=== PATIENT | male | born 1980 | race Caucasian/White ===

== ENCOUNTER 2019-07-21 15:58 | Emergency (ER) | payer OTHER, SELFPAY ==
[2019-07-21 15:59] VITALS: BP 136/80; PULSE 56; RESP 15; TEMP 36.8; O2SAT 97; BMI 21.8
[2019-07-21] MEDS: Diphth,Pertuss(Acell),Tet Vac 0.5 ML Vial IM (16:28)
--- NOTE | 2019-07-21 16:32 | ED.VIS.GEN ---
History of Present Illness Chief Complaint: Laceration Informant: Patient Onset: Today Context: Sudden Onset Timing: Continuous Current Severity: Mild Maximum Severity: Mild Narrative: The patient is a 38-year-old male who is otherwise healthy presents to the emergency department chin laceration. Patient was playing pedroza. He states that he had gone up for the ball and got undercut. He landed directly on his chin. He denies loss of consciousness. He denies malocclusion. He had immediate pain and bleeding from the site. He presented here for further evaluation. He is not on any daily medications. He is unsure of his last tetanus. Prior similar symptoms: No Recent Illness/Hospitalization: No Past Medical History - Allergies and Home Meds Allergies/Adverse Reactions: Allergies No Known Allergies Allergy (Verified 07/21/19 16:01) Primary Care Physician: Orestes Walker III, MD [Primary Care Provider] - 7 Days for suture removal Prior records reviewed: Yes Past Medical History: None Surgical History: no surgical history Smoking Status: Never smoker Review of Systems General: Denies: Chills, Fever, Sweats Eyes: Denies: Visual changes - bilaterally, Diplopia ENT: Denies: Rhinorrhea, Sore throat Cardiovascular: Denies: Chest pain, Palpitations Respiratory: Denies: Dyspnea, Cough, Dyspnea on exertion Gastrointestinal: Denies: Abdominal pain, Nausea, Vomiting, Diarrhea, Melena, Hematochezia Genitourinary: Denies: Dysuria, Hematuria, Frequency Musculoskeletal: Denies: Back pain, Extremity Pain Skin: Denies: Rash, Wounds Neurological: Denies: Headache, Weakness, Numbness Physical Exam Vital Signs/Narrative: Vital Signs Temp Pulse Resp BP Pulse Ox 07/21/19 15:59 98.2 F 56 L 15 136/80 H 97 Inital Vital Signs reviewed: Yes General: Well nourished, Well developed, No Acute Distress Head: Normocephalic, - - 3 cm laceration at the left lower chin. No malocclusion. Midface stable. No nasal septal hematoma. Neck nontender. Eyes: Perrl, EOMI ENT: Moist mucous membranes, No rhinorrhea Neck: Supple, Nontender Cardiovascular: Regular rate, Regular rhythm, No murmurs Respiratory: No distress, CTA bilaterally, Chest nontender Abdomen: Soft, Nontender, Nondistended, Normal bowel sounds Back: Nontender, Normal Inspection Extremities: Nontender, No edema Skin: Normal color, No rash Neurological: Alert, Oriented x3, Cranial nerves II-XII grossly intact, Normal Strength, Normal Sensation Psychological: Normal affect, Normal Mood Diagnostic/Tx/Re-eval - Medical Decision Making The patient presents with chin laceration. His tetanus was updated. He has no pain along his dentition. He has no malocclusion. His wound was anesthetized with lidocaine with epinephrine. It was closed with 10 simple interrupted suture. Patient tolerated this without issue. He was counseled on local wound care and reasons to return. He will be discharged home. Impression 1. 4 cm facial laceration with repair Procedures - Lacerations No standard instances Length: 1.57 in Depth: Skin Shape: Linear Prep: Sterile Conditions, [place] Laceration repair: Irrigated, Lidocaine with epi, Local, Wound explored Irrigated (ml): 200 Number of Sutures/Dima: 10 Suture Information: Ethilon, 4-0 ED Disposition - Plan for ED Patient: Instructions: LACERATION, Face (Suture or Tape) Referrals: Orestes Walker III, MD [Primary Care Provider] - 7 Days for suture removal
== END 2019-07-21 17:04 | disposition home or self-care (01) ==
LOC: ED 16:28
PROVIDERS: Emergency Provider Emergency Medicine; Family Provider Family Medicine; PCP Family Medicine
DX: S01.81XA Laceration without foreign body of other part of head, initial encounter (principal); W03.XXXA Other fall on same level due to collision with another person, initial encounter; Y93.79 Activity, other specified sports and athletics; Y99.8 Other external cause status
CPT/HCPCS: 12013; 90471; 90715; 99283